=== PATIENT | male | born 1970 | race African-American/Black ===

== ENCOUNTER 2018-02-08 16:08 | Emergency (ER) | payer SELFPAY ==
[~2018-02-08] VITALS: Ht 188 cm; Wt 110.0 kg
[2018-02-08] MEDS ORDERED: MORPHINE SULFATE 10 MG/ML CPJ IM ONE (16:30)
[2018-02-08 18:42] VITALS: BP 147/86
== END 2018-02-08 19:25 | disposition home or self-care (01) ==
LOC: ER 16:22
DX: S80.01XA Contusion of right knee, initial encounter (principal); R51 Headache; M25.511 Pain in right shoulder; V68.1XXA Passenger in heavy transport vehicle injured in noncollision transport accident in nontraffic accident, initial encounter; Y93.89 Activity, other specified; Y92.410 Unspecified street and highway as the place of occurrence of the external cause; I10 Essential (primary) hypertension; M17.11 Unilateral primary osteoarthritis, right knee; F17.210 Nicotine dependence, cigarettes, uncomplicated; Z88.0 Allergy status to penicillin; Z87.828 Personal history of other (healed) physical injury and trauma
CPT/HCPCS: 70450; 72125; 73030; 73560; 96372; 99284; J2270; L1830; Z7610